=== PATIENT | female | born 1950 | race Native Hawaiian/Other Pacific Islander ===

== ENCOUNTER 2017-01-21 11:28 | Outpatient (CLI) | payer OTHER ==
[2017-01-21 14:42] LABS: POTASSIUM 4.7 mmol/L (3.6-5.2)
== END 2017-01-21 19:46 | disposition home or self-care (01) ==
LOC: LABW 11:28
PROVIDERS: Internal Medicine Cardiovascular Disease
DX: I25.10 Atherosclerotic heart disease of native coronary artery without angina pectoris (principal); E11.9 Type 2 diabetes mellitus without complications; I10 Essential (primary) hypertension
CPT/HCPCS: 36415; 80053; 80061; 82248

== ENCOUNTER 2017-06-16 13:06 | Outpatient (CLI) | payer OTHER ==
[2017-06-16 14:10] LABS: PLATELET COUNT 256 K/uL (152-353)
[2017-06-16 18:16] LABS: SODIUM 135.9 mmol/L (136-145)
[2017-06-16 18:17] LABS: POTASSIUM 4.3 mmol/L (3.6-5.2)
== END 2017-06-16 19:03 | disposition home or self-care (01) ==
LOC: LABW 13:06
PROVIDERS: Surgery
DX: C50.912 Malignant neoplasm of unspecified site of left female breast (principal)
CPT/HCPCS: 36415; 80053; 85027

== ENCOUNTER 2018-03-23 12:43 | Outpatient (CLI) | payer OTHER | END 2018-03-23 20:23 | disposition home or self-care (01) | LOC: CT 12:43 | DX: R06.09 Other forms of dyspnea (principal); Z87.891 Personal history of nicotine dependence ==

== ENCOUNTER 2018-04-11 09:21 | Outpatient (CLI) | payer OTHER ==
[2018-04-11 09:50] LABS: PLATELET COUNT 243 K/uL (152-353)
[2018-04-11 10:04] LABS: POTASSIUM 4.5 mmol/L (3.6-5.2)
== END 2018-04-11 20:18 | disposition home or self-care (01) ==
LOC: LABW 09:21
PROVIDERS: Internal Medicine Cardiovascular Disease
DX: I10 Essential (primary) hypertension (principal); E78.4 Other hyperlipidemia; Z79.01 Long term (current) use of anticoagulants; Z51.81 Encounter for therapeutic drug level monitoring
CPT/HCPCS: 36415; 80053; 80061; 82248; 85027

== ENCOUNTER 2018-10-06 13:34 | Outpatient (CLI) | payer OTHER | END 2018-10-06 22:34 | disposition home or self-care (01) | LOC: RAD 13:34 | DX: M54.5 Low back pain (principal) ==

== ENCOUNTER 2019-08-21 12:18 | Outpatient (CLI) | payer OTHER | END 2019-08-21 21:09 | disposition home or self-care (01) | LOC: RAD 12:18 | DX: M47.22 Other spondylosis with radiculopathy, cervical region (principal) ==